=== PATIENT | female | born 1930 | race Caucasian/White ===

== ENCOUNTER 2019-09-02 14:02 | Inpatient (IN) | payer MEDICARE ==
[~2019-09-02] VITALS: Ht 175.3 cm; Wt 81.7 kg
[2019-09-02 16:35] LABS: BASOPHILS ABSOLUTE AUTO 0.01 K/mm3 (0.00-0.23); BASOPHILS PERCENT AUTO 0 % (0-2); EOSINOPHILS ABSOLUTE AUTO 0.03 K/mm3 (0.00-0.68); EOSINOPHILS PERCENT AUTO 0 % (0-6); Hematocrit 37.2 % (33.0-51.0); Hemoglobin 12.1 g/dL (11.5-16.0); IMMATURE GRAN ABSOLUTE AUTO 0.03 K/mm3 (0.00-0.10); IMMATURE GRAN PERCENT AUTO 0 % (0-1); LYMPHOCYTES ABSOLUTE AUTO 0.79 K/mm3 (0.84-5.20); LYMPHOCYTES PERCENT AUTO 8 % (21-46); MONOCYTES ABSOLUTE AUTO 0.41 K/mm3 (0.16-1.47); MONOCYTES PERCENT AUTO 4 % (4-13); Mean Corpuscular HGB 31.8 pg (26.0-34.0); Mean Corpuscular HGB Conc 32.5 g/dL (31.5-36.5); Mean Corpuscular Volume 98 fL (80-100); Mean Platelet Volume 11.2 fL (9.1-12.4); NEUTROPHILS ABSOLUTE AUTO 8.18 K/mm3 (1.96-9.15); NEUTROPHILS PERCENT AUTO 87 % (41-73); Platelet Count 185 K/mm3 (150-400); RDW Coefficient Variation 11.9 % (11.7-14.2); RDW Standard Deviation 42.9 fL (35.1-46.3); White Blood Cell Count 9.45 K/mm3 (4.00-11.30)
[2019-09-02 16:53] LABS: Alanine Aminotransfer (ALT/SGP 17 U/L (12-78); Albumin, Blood 3.5 g/dL (3.4-5.0); Albumin/Globulin Ratio 1.2 (0.8-1.8); Alk Phos 85 U/L (50-136); Anion Gap 6 mmol/L (6-16); Aspartate Aminotrans (AST/SGOT 14 U/L (12-37); Bilirubin, Total 0.5 mg/dL (0.1-1.0); Blood Urea Nitrogen 31 mg/dL (8-24); Bun/Creatinine Ratio 33.5 (12.0-20.0); CO2, Blood 25 mmol/L (21-32); Calcium, Blood 8.3 mg/dL (8.5-10.1); Chloride, Blood 108 mmol/L (98-108); Creatinine, Blood 0.93 mg/dL (0.40-1.00); Glomerular Filtration Rate >60 (60-); Glucose, Blood 127 mg/dL (70-99); Potassium, Blood 3.8 mmol/L (3.5-5.5); Sodium, Blood 139 mmol/L (136-145); Total Protein, Blood 6.5 g/dL (6.4-8.2)
[2019-09-02 17:20] LABS: International Normalized Ratio 1.06; Prothrombin Time Results 11.3 Sec (9.7-11.5)
[2019-09-02] MEDS ORDERED: HYDCHL25 PO (17:41)
[2019-09-02] MEDS ORDERED: PRINIVIL10 MG PO (17:41)
[2019-09-02] MEDS ORDERED: METOPROLOL SUCC25 MG PO (17:41)
[2019-09-02 22:54] LABS: Source, Urine Catheter
[2019-09-02 22:56] LABS: Bilirubin, Urine Neg (Neg); Blood, Urine 1+ (Neg); Glucose Qualitative, Urine Neg (Neg); Ketones, Urine 1+ (Neg); Leukocyte Esterase, Urine Neg (Neg); Nitrite, Urine Pos (Neg); Protein, Urine Neg (Neg); Urobilinogen, Urine NORM (Normal)
[2019-09-02 22:59] LABS: Appearance, Urine Hazy (Clear); Color, Urine Yellow (P-Yellow)
[2019-09-02 23:02] LABS: Bacteria Many /hpf; Red Blood Cells, Urine 0-2 /hpf (0-2); Squamous Epithelial Cells Rare /hpf (Few); White Blood Cells, Urine 0-2 /hpf (0-5)
--- NOTE | 2019-09-03 07:17 | NUR ---
PATIENT ADMITTED WITH A FRACTURED LT HIP. PATIENT HAS BEEN ABLE TO HELP TURN SELF FOR REPOSITIONING. FC PLACED EARLY IN THE SHIFT, UA SENT. PATIENT WILL GO TO SURGERY IN THE MORNING. SHE SLEP MOST OF THE NIGHT. MEDICATED WITH PO PAIN MEDICATIONS WITH GOOD RESULTS.TURNED SLIGHTLY LT TO RT ABLE. CALL LIGHT IN REACH AND REPORT TO OH PACK.
--- NOTE | 2019-09-03 08:00 | NUR ---
PT TO OR AT APROX 0745.
--- NOTE | 2019-09-03 08:54 | NUR ---
09/03/19 0854 Karen Watkins PATIENT ARRIVED WITH ADAMS IN PLACE.
--- NOTE | 2019-09-03 11:01 | NUR ---
PT RETURNED TO UNIT FROM PACU AT APROX 1100. DRESSINGS X'3 3 LLE C/D/I. PT DERMATOMES L2, NO SENSATION IN LLE, UNABLE TO WIGGLE TOES AT THIS TIME, PULSES PRESENT BILAT. PT DENIES PAIN. A/O
--- NOTE | 2019-09-03 16:39 | NUR ---
SHIFT SUMMARY PT POD 0 L HIP PINNING. DRESSINGS X'S 3 C/D/I. PAIN MANAGED PER EMAR. PT DENIES N/V, TOLERATING REGULAR DIET. PAIN MANAGED PER EMAR, PARTICIPATED WITH THERAPY. ADAMS PATENT, DRAINING CLEAR/CARLOS URINE WILL DC IN AM PER ORDER.
[2019-09-04 04:08] LABS: Hematocrit 29.9 % (33.0-51.0); Hemoglobin 9.8 g/dL (11.5-16.0); Mean Corpuscular HGB 32.2 pg (26.0-34.0); Mean Corpuscular HGB Conc 32.8 g/dL (31.5-36.5); Mean Corpuscular Volume 98 fL (80-100); Mean Platelet Volume 11.1 fL (9.1-12.4); Platelet Count 175 K/mm3 (150-400); RDW Coefficient Variation 12.2 % (11.7-14.2); RDW Standard Deviation 43.8 fL (35.1-46.3); Red Blood Cell Count 3.04 M/mm3 (3.80-5.20); White Blood Cell Count 8.19 K/mm3 (4.00-11.30)
[2019-09-04 04:25] LABS: Anion Gap 2 mmol/L (6-16); Blood Urea Nitrogen 36 mg/dL (8-24); Bun/Creatinine Ratio 31.6 (12.0-20.0); CO2, Blood 31 mmol/L (21-32); Calcium, Blood 8.3 mg/dL (8.5-10.1); Chloride, Blood 103 mmol/L (98-108); Creatinine, Blood 1.14 mg/dL (0.40-1.00); Glomerular Filtration Rate 48 (60-); Glucose, Blood 141 mg/dL (70-99); Phosphorus, Blood 2.9 mg/dL (2.5-4.9); Potassium, Blood 4.2 mmol/L (3.5-5.5); Sodium, Blood 136 mmol/L (136-145)
--- NOTE | 2019-09-04 04:26 | NUR ---
Patient has been having some confusion upon waking. Patient is seeing lights in ceiling fixtures where there are none. She is oriented to staff, event, self, date, place. @0400 patient woke and pulled off her lt thigh dressing. The surgical site is not draining, no redness, no heat. No other acute changes.
--- NOTE | 2019-09-04 13:24 | NUR ---
assumed care of pt. she is resting up in her chair with no complaints. pt continues to deny the need to void.
--- NOTE | 2019-09-04 13:38 | NUR ---
REPORT GIVEN TO SHAQUILLE PACK TO ASSUME CARE AT THIS TIME.
--- NOTE | 2019-09-04 15:33 | NUR ---
SHIFT SUMMARY PT IS A/O TO HERSELF THIS AFTERNOON BUT DOES APPEAR TO BE CONFUSED. SHE WAS ASSISTED TO THE BSC TO ATTEMPT TO VOID BUT STATED THAT SHE HAD NO URGE. SHE REQUESTED TO GO BACK TO BED AND IT TOOK 3 PEOPLE TO TRANSFER HER WITH A GAIT BELT AND A FWW. BLADDER SCAN REVEALED 51 ML IN HER BLADDER. WAS NOTIFIED AND GAVE ORDERS TO START HER ON IV FLUIDS WHICH ARE INFUSING NOW. THE PT HAS ALSO BEEN ENCOURAGED TO DRINK MORE FLUIDS. DRESSING REMAIN C.D.I. TO LLE. SHE IS RESTING IN BED AND DOES USE THE CALL LIGHT FOR HELP WHEN NEEDED.
--- NOTE | 2019-09-05 04:23 | NUR ---
SHIFT SUMMARY POD # 2 LEFT HIP PINNING. DRESSING X3 TO LEFT HIP C/D/I. A/O, VSS. NO ACUTE CHANGES THIS SHIFT. PAIN MANAGED WITH PO MEDICATION, ICE, AND REPOSITIONING. PT PLEASANT AND COOPERATIVE. REPOSITIONED T/O SHIFT. INTERMITTENT INCONTIENCE, ATTENDS CHANGED PRN. VOIDED 3X DURING SHIFT. PT CURRENTLY RESTING IN BED WITH CALL LIGHT IN REACH. WILL CONT TO MONITOR AND GIVE REPORT TO ONCOMING RN.
--- NOTE | 2019-09-05 15:29 | NUR ---
DISCHARGE TO SNF REPORT CALLED TO TRACY AT [facility] PRIOR TO PT DISCHARGE. QUESTIONS ANSWERED. TRACY NOTIFIED THAT PT REPORTED A BM ON 09/03/19. PT LEFT WITH TRANSPORT AT APPROXIMATELY 1525. PT HAS BEEN MILDLY CONFUSED/FORGETFUL THIS SHIFT. DISCHARGE PACKET AND SCRIPTS SENT WITH PT.
== END 2019-09-05 15:25 | disposition home or self-care (01) | DRG 482 ==
LOC: ER 14:02 → SURS 16:27
PROVIDERS: Internal Medicine; Orthopaedic Surgery; Physician Assistant; ADMIT Hospitalist
PROC: 0QH704Z Insertion of Internal Fixation Device into Left Upper Femur, Open Approach (ICD-10-PCS; principal; 2019-09-03 08:00)
DX: S72.142A Displaced intertrochanteric fracture of left femur, initial encounter for closed fracture (principal); W19.XXXA Unspecified fall, initial encounter; I10 Essential (primary) hypertension; I35.0 Nonrheumatic aortic (valve) stenosis
CPT/HCPCS: 36415; 71045; 73502; 80053; 80069; 81001; 85025; 85027; 85610; 86850; 86900; 86901; 93005; 93010; 96374; 97110; 97162; 97166; 97530; 99285-25; A9270; A9270-GY; C1713; C1769; J0171; J0690; J1100; J1170; J1650; J2370; J2405; J2704; J3010; J7030; J7120; U0002

== ENCOUNTER 2020-06-30 12:51 | Inpatient (IN) | payer MEDICARE ==
[~2020-06-30] VITALS: Ht 160 cm; Wt 73.5 kg
[~2020-06-30 12:51] MED LIST: HYDCHL25 PO; LISI10 PO; METOPROLOL SUCC25 MG PO
[2020-06-30 13:43] LABS: BASOPHILS ABSOLUTE AUTO 0.01 K/mm3 (0.00-0.23); BASOPHILS PERCENT AUTO 0 % (0-2); EOSINOPHILS PERCENT AUTO 0 % (0-6); Hematocrit 37.5 % (33.0-51.0); Hemoglobin 12.9 g/dL (11.5-16.0); IMMATURE GRAN ABSOLUTE AUTO 0.04 K/mm3 (0.00-0.10); IMMATURE GRAN PERCENT AUTO 0 % (0-1); LYMPHOCYTES ABSOLUTE AUTO 0.48 K/mm3 (0.84-5.20); LYMPHOCYTES PERCENT AUTO 5 % (21-46); MONOCYTES ABSOLUTE AUTO 0.77 K/mm3 (0.16-1.47); MONOCYTES PERCENT AUTO 8 % (4-13); Mean Corpuscular HGB 32.5 pg (26.0-34.0); Mean Corpuscular HGB Conc 34.4 g/dL (31.5-36.5); Mean Corpuscular Volume 95 fL (80-100); Mean Platelet Volume 11.6 fL (9.1-12.4); NEUTROPHILS ABSOLUTE AUTO 8.39 K/mm3 (1.96-9.15); NEUTROPHILS PERCENT AUTO 87 % (41-73); Platelet Count 213 K/mm3 (150-400); RDW Coefficient Variation 13.2 % (11.7-14.2); RDW Standard Deviation 45.6 fL (35.1-46.3); Red Blood Cell Count 3.97 M/mm3 (3.80-5.20); White Blood Cell Count 9.69 K/mm3 (4.00-11.30)
[2020-06-30 13:53] LABS: Alanine Aminotransfer (ALT/SGP 33 U/L (12-78); Albumin, Blood 3.6 g/dL (3.4-5.0); Albumin/Globulin Ratio 1.1 (0.8-1.8); Alk Phos 109 U/L (50-136); Anion Gap 8 mmol/L (6-16); Aspartate Aminotrans (AST/SGOT 41 U/L (12-37); Bilirubin, Total 1.9 mg/dL (0.1-1.0); Blood Urea Nitrogen 58 mg/dL (8-24); Bun/Creatinine Ratio 63.9 (12.0-20.0); CO2, Blood 27 mmol/L (21-32); Calcium, Blood 9.1 mg/dL (8.5-10.1); Chloride, Blood 105 mmol/L (98-108); Creatinine, Blood 0.91 mg/dL (0.40-1.00); Globulin, Blood 3.4 g/dL (2.2-4.0); Glomerular Filtration Rate >60 (60-); Glucose, Blood 121 mg/dL (70-99); Sodium, Blood 140 mmol/L (136-145)
[2020-06-30 13:55] LABS: International Normalized Ratio 1.05; Prothrombin Time Results 11.3 Sec (9.7-11.5)
[2020-06-30 17:14] LABS: Source, Urine Catheter
[2020-06-30 17:21] LABS: Appearance, Urine Hazy (Clear); Bilirubin, Urine Neg (Neg); Blood, Urine 4+ (Neg); Glucose Qualitative, Urine Neg (Neg); Ketones, Urine 1+ (Neg); Leukocyte Esterase, Urine 1+ (Neg); Nitrite, Urine Pos (Neg); Protein, Urine 3+ (Neg); Urobilinogen, Urine 1+ (Normal)
[2020-06-30 17:32] LABS: Color, Urine Amber (P-Yellow)
[2020-06-30 17:33] LABS: Mucus Light (0-Heavy)
[2020-06-30 17:34] LABS: Bacteria Many /hpf; Renal Epithelial Rare /hpf (0-Rare); Squamous Epithelial Cells Few /hpf (Few); Transitional Epithelial Cells Few /hpf (0-Rare)
[2020-06-30] MEDS ORDERED: NITR100CA PO (17:35)
--- NOTE | 2020-06-30 20:30 | NUR ---
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
[2020-07-01 04:23] LABS: BASOPHILS ABSOLUTE AUTO 0.01 K/mm3 (0.00-0.23); BASOPHILS PERCENT AUTO 0 % (0-2); EOSINOPHILS ABSOLUTE AUTO 0.04 K/mm3 (0.00-0.68); EOSINOPHILS PERCENT AUTO 1 % (0-6); Hematocrit 33.3 % (33.0-51.0); Hemoglobin 11.2 g/dL (11.5-16.0); IMMATURE GRAN ABSOLUTE AUTO 0.02 K/mm3 (0.00-0.10); IMMATURE GRAN PERCENT AUTO 0 % (0-1); LYMPHOCYTES PERCENT AUTO 10 % (21-46); MONOCYTES PERCENT AUTO 10 % (4-13); Mean Corpuscular HGB 32.7 pg (26.0-34.0); Mean Corpuscular HGB Conc 33.6 g/dL (31.5-36.5); Mean Corpuscular Volume 97 fL (80-100); Mean Platelet Volume 11.9 fL (9.1-12.4); NEUTROPHILS ABSOLUTE AUTO 5.51 K/mm3 (1.96-9.15); NEUTROPHILS PERCENT AUTO 79 % (41-73); Platelet Count 178 K/mm3 (150-400); RDW Coefficient Variation 13.4 % (11.7-14.2); RDW Standard Deviation 47.9 fL (35.1-46.3); Red Blood Cell Count 3.43 M/mm3 (3.80-5.20); White Blood Cell Count 6.98 K/mm3 (4.00-11.30)
[2020-07-01 04:48] LABS: Anion Gap 6 mmol/L (6-16); Blood Urea Nitrogen 54 mg/dL (8-24); Bun/Creatinine Ratio 62.4 (12.0-20.0); CO2, Blood 29 mmol/L (21-32); Calcium, Blood 8.4 mg/dL (8.5-10.1); Chloride, Blood 109 mmol/L (98-108); Creatinine, Blood 0.87 mg/dL (0.40-1.00); Glomerular Filtration Rate >60 (60-); Glucose, Blood 98 mg/dL (70-99); Potassium, Blood 3.7 mmol/L (3.5-5.5); Sodium, Blood 144 mmol/L (136-145)
--- NOTE | 2020-07-01 05:01 | NUR ---
SHIFT SUMMARY PT SLEPT MUCH OF SHIFT; VSS; NSR NOTED ON TELE W/ HR 70'S; O2 SATS > 93 ON RA; SNORING NOTED WHEN SLEEPING; C/O SEVERE PAIN IN R KNEE AND R HIP WHEN CHANGING ATTENDS; CALLS OUT IN PAIN; DISCUSSED W/ BENJI ZAMBRANO EARLIER IN SHIFT AND ORDER WAS GIVEN FOR 2 VIEW XRAY TO BE DONE IN AM; PT DOES NOT SHOW SIGNS OF PAIN OR DISTRESS WHEN SLEEPING; CALL LIGHT IN REACH; BED IN LOWEST POSITION; WILL CONTINUE TO MONITOR CLOSELY UNTIL HAND OFF TO DAY SHIFT RN.
--- NOTE | 2020-07-01 05:48 | NUR ---
UPDATE SPOKE TO SON MEL W/ PT PERMISSION; SON STATES PT HAD FALLEN A YEAR AGO AND HAD YANETH PLACED IN LEG AND REHAB WAS AT [facility], UNABLE TO IDENTIFY WHICH LEG HAD FX
--- NOTE | 2020-07-01 15:57 | NUR ---
PT TO CT OF RIGHT KNEE
--- NOTE | 2020-07-01 18:35 | NUR ---
SHIFT SUMMARY: ASSUMED CARE OF PATIENT AT 1704 UPON HER ARRIVAL FROM PCU 11. SLEEPY, BUT AROUSES TO SPEECH, KNOWS NAME AND . RLE IN FULL BRACE, PILLOW PLACED LATERALLY TO PREVENT EXTERNAL ROTATION. WAS ON O2 @ 4 L/MIN NC (DOES NOT USE HOME O2); MONITORED O2 SATS AND WAS ABLE TO TITRATE DOWN TO 2 L/MIN NC. PATIENT SNORES AND HAS BRIEF PERIODS OF APNEA WHILE SLEEPING WITH DROP IN SATURATION TO 84-89%. C/O MILD DISCOMFORT IN RLE; TYLENOL GIVEN PRIOR TO TRANSFER. HAS BEEN SLEEPING SINCE ARRIVAL.
--- NOTE | 2020-07-01 19:19 | NUR ---
PT TRANSFERRED TO ROOM 335 ON MEDICAL FLOOR. REPORT GIVEN TO JOSE RAFAEL PACK. PLACED A BRACE TO THE RIGHT LEG PRIOR TO CT SCAN. VERBAL ORDER FOR BUCKS TRACTION W/5LB WEIGHT. PT IS A&O X2. VSS, ON 4 L O2 VIA NC. TYLENOL GIVEN FOR PAIN. BELONGINGS SENT WITH PT.
--- NOTE | 2020-07-01 20:27 | NUR ---
CHARGE REPORTS SURGICAL CHARGE IS LOOKING FOR PINEDA'S TRACTION TO BE SET UP BY SURGICAL STAFF.
--- NOTE | 2020-07-01 23:16 | NUR ---
COMPONENTS/PARTS TO SETUP PINEDA'S TRACTION ARE INCOMPLETE AT THIS TIME PER LOADER SEMICONDUCTOR DIES.
--- NOTE | 2020-07-02 03:14 | NUR ---
SHIFT SUMMARY PATIENT HAD NO ACUTE CHANGES OBSERVED. AXOX 2 AND BEDREST. RIGHT LEG BRACE. USING BEDPAN WITH TWO ASSIST. PINEDA'S TRACTION COMPONENTS/PARTS NOT AVAILABLE AT THIS TIME PER HOTEL MAINTENANCE WORKER AND MEDICAL MANAGER [employer]ARM. PIV REMAINS INTACT. ON 2L O2 NC. VSS/AFEBRILE. DENIES PAIN, SOB, AND N/V. SLEPT T/O SHIFT. CALL LIGHT IN REACH. BED IN LOWEST POSITION. WILL CONTINUE TO MONITOR UNTIL DAY SHIFT NURSE ASSUMES CARE.
[2020-07-02 05:16] LABS: Bun/Creatinine Ratio 58.6 (12.0-20.0); Creatinine, Blood 0.94 mg/dL (0.40-1.00); Potassium, Blood 3.8 mmol/L (3.5-5.5)
--- NOTE | 2020-07-02 18:58 | NUR ---
CALLED DR. SOTO, LEFT MESSAGE WITH ANSWERING SERVICE. TRACTION WAS NOT ABLE TO BE SET UP TODAY DUE TO INCOMPATABILITY OF EQUIPMENT WITH BEDS.
[2020-07-03 05:35] LABS: BASOPHILS ABSOLUTE AUTO 0.02 K/mm3 (0.00-0.23); BASOPHILS PERCENT AUTO 0 % (0-2); EOSINOPHILS ABSOLUTE AUTO 0.22 K/mm3 (0.00-0.68); EOSINOPHILS PERCENT AUTO 4 % (0-6); Hemoglobin 10.6 g/dL (11.5-16.0); IMMATURE GRAN ABSOLUTE AUTO 0.02 K/mm3 (0.00-0.10); IMMATURE GRAN PERCENT AUTO 0 % (0-1); LYMPHOCYTES ABSOLUTE AUTO 1.05 K/mm3 (0.84-5.20); LYMPHOCYTES PERCENT AUTO 20 % (21-46); MONOCYTES ABSOLUTE AUTO 0.59 K/mm3 (0.16-1.47); MONOCYTES PERCENT AUTO 11 % (4-13); Mean Corpuscular HGB 32.8 pg (26.0-34.0); Mean Corpuscular HGB Conc 33.1 g/dL (31.5-36.5); Mean Corpuscular Volume 99 fL (80-100); Mean Platelet Volume 11.7 fL (9.1-12.4); NEUTROPHILS ABSOLUTE AUTO 3.36 K/mm3 (1.96-9.15); NEUTROPHILS PERCENT AUTO 64 % (41-73); Platelet Count 193 K/mm3 (150-400); RDW Coefficient Variation 13.5 % (11.7-14.2); RDW Standard Deviation 49.3 fL (35.1-46.3); Red Blood Cell Count 3.23 M/mm3 (3.80-5.20); White Blood Cell Count 5.26 K/mm3 (4.00-11.30)
--- NOTE | 2020-07-03 05:37 | NUR ---
SHIFT SUMMARY- PT. SLEPT T/O THE SHIFT, R LEG IN BRACE. REPOSITIONED FOR COMFORT AND PRN, TOLERATED WELL. PT. WITH ELEVATED BP LAST NIGHT, NOTIFIED HOSPITALIST DR. BRICE. RECEIVED ORDER FOR PRN HYDRALAZINE, MEDICATED PER ORDER. ALSO TYLENOL GIVEN, PT. APPEARED PAINFUL. PT. BP IMPROVED AND APPEARED TO BE SLEEPING COMFORTABLY IN BED, NO APPARENT DISTRESS NOTED. INFORMED MY DAY RN AND PM AGENCY TRAINER PINEDA TRACTION UNABLE TO BE APPLIED AT THIS TIME FOR SAFETY REASONS. CALL LIGHT WITHIN REACH, SIDE RAILS UPX3, AND BED ALARM ON FOR SAFETY. WILL CONT TO MONITOR.
[2020-07-03 05:56] LABS: Anion Gap 4 mmol/L (6-16); Blood Urea Nitrogen 44 mg/dL (8-24); CO2, Blood 28 mmol/L (21-32); Calcium, Blood 8.4 mg/dL (8.5-10.1); Chloride, Blood 109 mmol/L (98-108); Creatinine, Blood 0.76 mg/dL (0.40-1.00); Glomerular Filtration Rate >60 (60-); Glucose, Blood 97 mg/dL (70-99); Sodium, Blood 141 mmol/L (136-145)
--- NOTE | 2020-07-03 11:45 | NUR ---
Pt resting in bed upon arrival. Pt is pleasantly confusded and is A&OX1. Pt is orientated to family. When asked daughter's name Pt states "Ruma". Pt reports pain in her right hip and confirms pain level with faces on white board. Pain level is 6/10. Spoke with Tena from PT and discussed case. Pt unable to participate with therapy today due to pain, weakness, and lethargy. Spoke with ST Marrero and discussed case. Pt has significant cognitive impairment. Nursing staff reports son did admitt Pt experiences intermittent confusion. Called and spoke with Pt's daughter Ruma. Ruma [place] Pt. At baseline Pt is independent. Engaged in gentle education on the importance of planning for the future pending Pt's rehab and mentation. Discussed the potential of needing to consider 24 hour caregiver support or higher level of care. Discussed Pt's code status with Ruma reporting thinking Pt would want to be DNR but would want her brother (Pt's son) thoughts before making any decision. Continued therapeutic listening and answered questions. Ruma reports her is also in the hospital and plans to visit Pt when she visits her . Ruma expresses appreciation of call. Attempted to contact Pt's son with no success. No option to leave voicemail. Will attempt again at a later time. Spoke with Dr Phillips and discussed case. Dr Phillips will consider alternate pain regimen. Palliative Care will remain available.
--- NOTE | 2020-07-03 19:15 | NUR ---
SHIFT SUMMARY- PT HAS SLEPT INTERMITENTLY THROUGHOUT THIS SHIFT. SHE IS EATING AND DRINKING WELL. SHE HAS NOT BEEN PULLING OFF HER GOWN OR OXYGEN THIS SHIFT. HER DAUGHTER VISITED. HER BED IS IN THE LOW POSITION AND CALL LIGHT IS WITIN REACH.
--- NOTE | 2020-07-04 04:46 | NUR ---
SHIFT SUMMARY PT SLEPT MUCH OF THE NIGHT TONIGHT. WOKE SEVERAL TIMES AND PULLED OFF HER GOWN. PT A/O X 2-3. APPEARING TO BECOME MORE CONFUSED DURING THE EVENING TIME. PT HAS IMMOBOLIZING BRACE TO R LEG. INCONTINENT TONIGHT. TOLERATES TURNING FOR CHANGING WITH SOME PAIN. MEDICATED W/ TYLENOL X 1. PT HAD AN UNEVENTFUL NIGHT. VSS. WILL CONTINUE TO MONITOR.
[2020-07-04 05:30] LABS: BASOPHILS ABSOLUTE AUTO 0.01 K/mm3 (0.00-0.23); BASOPHILS PERCENT AUTO 0 % (0-2); EOSINOPHILS ABSOLUTE AUTO 0.17 K/mm3 (0.00-0.68); EOSINOPHILS PERCENT AUTO 4 % (0-6); Hematocrit 32.9 % (33.0-51.0); Hemoglobin 10.8 g/dL (11.5-16.0); IMMATURE GRAN ABSOLUTE AUTO 0.02 K/mm3 (0.00-0.10); IMMATURE GRAN PERCENT AUTO 0 % (0-1); LYMPHOCYTES ABSOLUTE AUTO 1.04 K/mm3 (0.84-5.20); LYMPHOCYTES PERCENT AUTO 21 % (21-46); MONOCYTES ABSOLUTE AUTO 0.56 K/mm3 (0.16-1.47); MONOCYTES PERCENT AUTO 11 % (4-13); Mean Corpuscular HGB 32.5 pg (26.0-34.0); Mean Corpuscular HGB Conc 32.8 g/dL (31.5-36.5); Mean Corpuscular Volume 99 fL (80-100); Mean Platelet Volume 11.2 fL (9.1-12.4); NEUTROPHILS PERCENT AUTO 63 % (41-73); Platelet Count 224 K/mm3 (150-400); RDW Coefficient Variation 13.7 % (11.7-14.2); RDW Standard Deviation 49.6 fL (35.1-46.3); Red Blood Cell Count 3.32 M/mm3 (3.80-5.20)
--- NOTE | 2020-07-04 09:00 | NUR ---
called dr gibbs, , informed that traction was unavailable and asked for directions, awaiting follow up
[2020-07-04] MEDS ORDERED: ACET325 PO (10:22)
[2020-07-04 11:28] LABS: Influenza A, PCR NEGATIVE (NEGATIVE); Influenza B, PCR NEGATIVE (NEGATIVE); Resp Syncytial Virus, PCR NEGATIVE (NEGATIVE); SARS-Cov-2 (COVID-19) PCR, MMC NEGATIVE (NEGATIVE)
--- NOTE | 2020-07-04 15:01 | NUR ---
discharged to snf, eli from called and received report, stated pt had arrived in good spririts and vss, had been lifted into wc and staff packed her in wc to keep her from falling out (somulent), no iv to remove, packet sent with transport
== END 2020-07-04 13:50 | DRG 533 ==
LOC: ER 12:51 → ERHOLD 18:27 → PCU 18:27 → MEDS 18:27 → PCU 20:14 → MEDS 07-01 17:02
PROVIDERS: Family Medicine; Internal Medicine; Physician Assistant; ADMIT Hospitalist
DX: S72.401A Unspecified fracture of lower end of right femur, initial encounter for closed fracture (principal); G92 Toxic encephalopathy; M97.11XA Periprosthetic fracture around internal prosthetic right knee joint, initial encounter; N39.0 Urinary tract infection, site not specified; Z20.822 Contact with and (suspected) exposure to COVID-19; E86.0 Dehydration; I10 Essential (primary) hypertension; F03.90 Unspecified dementia, unspecified severity, without behavioral disturbance, psychotic disturbance, mood disturbance, and anxiety; I48.0 Paroxysmal atrial fibrillation; Z60.2 Problems related to living alone; Z79.899 Other long term (current) drug therapy; Z98.890 Other specified postprocedural states; W19.XXXA Unspecified fall, initial encounter
CPT/HCPCS: 0241U; 36415; 70450; 71045; 73502; 73560-RT; 73700; 80048; 80053; 81001; 85025; 85610; 92507; 92523; 93005; 93010; 96361; 96374; 97110; 97162; 97166; 97530; 99285-25; A9270; J0360; J0696; J1650; J7030; P9612

== ENCOUNTER → 2020-09-10 | Outpatient (CLI) | payer MEDICARE ==
[~2020-09-10] MED LIST changes: +ACET325 PO; +NITR100CA PO
[2020-09-11 00:03] LABS: Hematocrit 32.5 % (33.0-51.0); Hemoglobin 10.7 g/dL (11.5-16.0); Mean Corpuscular HGB 32.6 pg (26.0-34.0); Mean Corpuscular HGB Conc 32.9 g/dL (31.5-36.5); Mean Corpuscular Volume 99 fL (80-100); Mean Platelet Volume 12.5 fL (9.1-12.4); Platelet Count 199 K/mm3 (150-400); RDW Coefficient Variation 12.5 % (11.7-14.2); RDW Standard Deviation 45.5 fL (35.1-46.3); Red Blood Cell Count 3.28 M/mm3 (3.80-5.20); White Blood Cell Count 4.57 K/mm3 (4.00-11.30)
[2020-09-11 00:25] LABS: Bun/Creatinine Ratio 51.6 (12.0-20.0); Calcium, Blood 8.8 mg/dL (8.5-10.1); Creatinine, Blood 0.91 mg/dL (0.40-1.00); Potassium, Blood 4.4 mmol/L (3.5-5.5)
== END ==
LOC: EDSTATUS 10:35 → LAB UVN 21:00
PROVIDERS: Internal Medicine
DX: I10 Essential (primary) hypertension (principal); N39.0 Urinary tract infection, site not specified
CPT/HCPCS: 80048; 85027

== ENCOUNTER → 2020-12-19 | Outpatient (CLI) | payer MEDICARE ==
[2020-12-19 09:54] LABS: Anion Gap 3 mmol/L (6-16); Blood Urea Nitrogen 35 mg/dL (8-24); CO2, Blood 28 mmol/L (21-32); Calcium, Blood 8.9 mg/dL (8.5-10.1); Chloride, Blood 109 mmol/L (98-108); Creatinine, Blood 0.78 mg/dL (0.40-1.00); Glomerular Filtration Rate >60 (60-); Glucose, Blood 90 mg/dL (70-99); Potassium, Blood 4.2 mmol/L (3.5-5.5); Sodium, Blood 140 mmol/L (136-145)
== END ==
LOC: LAB UVN 08:08 → EDSTATUS 15:58
PROVIDERS: Internal Medicine
DX: G93.41 Metabolic encephalopathy (principal)
CPT/HCPCS: 80048